=== PATIENT | male | born 1950 | race Caucasian/White ===

== ENCOUNTER 2019-07-12 22:14 | Emergency (ER) | payer MEDICARE, BC ==
[2019-07-12] MEDS ORDERED: Cephalexin 250 MG Cap PO ONE (22:53)
[2019-07-12] MEDS ORDERED: Sulfamethoxazole/Trimethoprim 800-160 MG Tab PO ONE (22:54)
--- NOTE | 2019-07-12 23:03 | EDM.PDOC ---
ED HPI GENERAL MEDICAL PROBLEM - General Chief Complaint: Skin Complaint Stated Complaint: BUG BITE Time Seen by Provider: 07/12/19 22:50 Source of Information: Reports: Patient, RN History Limitations: Reports: Other (no old records) - History of Present Illness INITIAL COMMENTS - FREE TEXT/NARRATIVE: 69 yo male from [facility] arrived today and noted L distal anterior thigh redness and increased warmth. He has not had a fever. He thought he had a bug bite in this area for the past few days and now has the surrounding redness. Has no allergies to antibiotics. Onset: Gradual Onset Date: 07/08/19 Duration: Day(s):, Getting Worse Location: Reports: Lower Extremity, Left Quality: Reports: Dull Severity: Mild Improves with: Reports: None Worsens with: Reports: Other (time) Context: Reports: Other (See HPI) Associated Symptoms: Reports: No Other Symptoms. 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: Other (see below) (none) - Related Data Allergies Allergy/AdvReac Type Severity Reaction Status Date / Time No Known Allergies Allergy Verified 07/12/19 22:54 Home Meds: Home Meds Cephalexin [Keflex] 750 mg PO Q8H #14 capsule 07/12/19 [Rx] Sulfamethoxazole/Trimethoprim [Bactrim Ds Tablet] 1 each PO BID #14 tablet 07/12 [Rx] atorvaSTATin Calcium [Lipitor] 40 mg PO BEDTIME 07/12/19 [History] Past Medical History Cardiovascular History: Reports: High Cholesterol Social & Family History - Tobacco Use Smoking Status *Q: Never Smoker - Caffeine Use Caffeine Use: Reports: None - Alcohol Use Days Per Week of Alcohol Use: 3 Number of Drinks Per Day: 2 Total Drinks Per Week: 6 - Recreational Drug Use Recreational Drug Use: No ED ROS GENERAL - Review of Systems Review Of Systems: See Below Constitutional: Reports: No Symptoms Musculoskeletal: Reports: Other (L knee a little tight with flexion) Skin: Reports: Erythema (upper L anterior knee and distal L thigh anteriorly) ED EXAM, SKIN/RASH Exam: See Below Exam Limited By: No Limitations General Appearance: Alert, WD/WN, No Apparent Distress Extremities: Limited Range of Motion (full flexion difficult due to swelling of red area. ), Increased Warmth (upper L knee and distal anterior thigh), Redness (L anterior knee. ). No: No Pedal Edema Neurological: Alert, Oriented, CN II-XII Intact, No Motor/Sensory Deficits Psychiatric: Normal Affect, Normal Mood Skin: Warm, Dry, Intact, No Rash, Erythema (Redness to anterior upper knee and anterior/distal thigh), Other (2 small pustules overlie the red area.) Location, Skin: Lower Extremity, Left Characteristics: Macular (cellulitis), Other (pustules x 2) Associated features: Warmth Course - Vital Signs Text/Narrative:: culture of the larger pustule obtained. Last Recorded V/S: Last Vital Signs Temp 35.4 C 07/12/19 22:55 Pulse 66 07/12/19 22:55 Resp 18 07/12/19 22:55 BP 139/85 07/12/19 22:55 Pulse Ox 97 07/12/19 22:55 - Orders/Labs/Meds Orders: Active Orders 24 hr Category Date Time Status CULTURE WOUND + SMEAR [RM] Stat Lab 07/12/19 22:50 Ordered Meds: Medications Discontinued Medications Generic Name Dose Route Start Last Admin Trade Name Dalia PRN Reason Stop Dose Admin Cephalexin 1,000 mg 07/12/19 22:53 Keflex PO 07/12/19 22:54 ONETIME ONE Trimethoprim/Sulfamethoxazole 1 tab 07/12/19 22:54 Septra Ds PO 07/12/19 22:55 ONETIME ONE Departure - Departure Time of Disposition: 23:15 Disposition: Home, Self-Care 01 Condition: Fair Clinical Impression: Cellulitis Qualifiers: Site of cellulitis: extremity Site of cellulitis of extremity: lower extremity Laterality: left Qualified Code(s): L03.116 - Cellulitis of left lower limb - Discharge Information *PRESCRIPTION DRUG MONITORING PROGRAM REVIEWED*: No *COPY OF PRESCRIPTION DRUG MONITORING REPORT IN PATIENT JESUS MANUEL: No Prescriptions: Cephalexin [Keflex] 750 mg PO Q8H #14 capsule Sulfamethoxazole/Trimethoprim [Bactrim Ds Tablet] 1 each PO BID #14 tablet Referrals: PCP,None [Primary Care Provider] - Additional Instructions: Take antibiotics as directed. The cephalexin will be due next when pharmacies open in the morning tomorrow. Warm compresses to area. Keep wound clean. Recheck Sunday in the clinic, return here if worse in the interim or head home to see your doctor. Culture will be available in about 3 days. - My Orders Last 24 Hours: My Active Orders 07/12/19 22:50 CULTURE WOUND + SMEAR [RM] Stat - Assessment/Plan Last 24 Hours: My Active Orders 07/12/19 22:50 CULTURE WOUND + SMEAR [RM] Stat
== END 2019-07-12 23:20 | disposition home or self-care (01) ==
LOC: JP.ED 22:14
DX: L03.116 Cellulitis of left lower limb (principal)
CPT/HCPCS: 87070; 87077; 87186; 87205; 99281; A9270; 99283

== ENCOUNTER 2019-07-13 19:25 | Emergency (ER) | payer MEDICARE, BC ==
--- NOTE | 2019-07-13 20:32 | EDM.PDOC ---
ED HPI GENERAL MEDICAL PROBLEM - General Chief Complaint: Lower Extremity Injury/Pain Stated Complaint: CONCERNS WITH INFEC IN KNEE Time Seen by Provider: 07/13/19 20:12 Source of Information: Reports: Patient, Family, Old Records, RN Notes Reviewed History Limitations: Reports: No Limitations - History of Present Illness INITIAL COMMENTS - FREE TEXT/NARRATIVE: 69-year-old gentleman presents emergency department today for recheck of his cellulitis, He was evaluated in the emergency department yesterday started on antibiotics of Keflex and Bactrim he states the wound has improved the redness is lightened up however it has progressed past the line about an inch, the warmth has improved the pain is also improved. - Related Data Allergies Allergy/AdvReac Type Severity Reaction Status Date / Time No Known Allergies Allergy Verified 07/13/19 20:26 Home Meds: Home Meds Cephalexin [Keflex] 750 mg PO Q8H #14 capsule 07/12/19 [Rx] Sulfamethoxazole/Trimethoprim [Bactrim Ds Tablet] 1 each PO BID #14 tablet 07/12 [Rx] atorvaSTATin Calcium [Lipitor] 40 mg PO BEDTIME 07/12/19 [History] Past Medical History Cardiovascular History: Reports: High Cholesterol Social & Family History - Tobacco Use Smoking Status *Q: Never Smoker - Caffeine Use Caffeine Use: Reports: None - Recreational Drug Use Recreational Drug Use: No Review of Systems - Review of Systems Review Of Systems: See Below Constitutional: Reports: No Symptoms Skin: Reports: Erythema ED EXAM, GENERAL - Physical Exam Exam: See Below Free Text/Narrative:: Examination of the left knee reveals mild erythema over the knee is slight redness passing the line that was drawn yesterday it is not warm to the touch not tender to the touch full range of motion of the knee Exam Limited By: No Limitations General Appearance: Alert, WD/WN, No Apparent Distress Respiratory/Chest: No Respiratory Distress Course - Vital Signs Last Recorded V/S: Last Vital Signs Temp 97.7 F 07/13/19 20:15 Pulse 76 07/13/19 20:15 Resp 18 07/13/19 20:15 BP 148/76 H 07/13/19 20:15 Pulse Ox 95 07/13/19 20:15 Departure - Departure Time of Disposition: 20:30 Disposition: Home, Self-Care 01 Condition: Fair Clinical Impression: Cellulitis Qualifiers: Site of cellulitis: extremity Site of cellulitis of extremity: lower extremity Laterality: left Qualified Code(s): L03.116 - Cellulitis of left lower limb - Discharge Information Instructions: Cellulitis, Adult Referrals: PCP,None [Primary Care Provider] - Additional Instructions: Continue course of antibiotics started, follow-up with your primary care in the next 3-4 days if no improvement call or return to the emergency department worsening of symptoms - Assessment/Plan Plan: Assessment Acuity = acute Site and laterality = cellulitis left knee Etiology = probable bacterial cause Manifestations = none Location of injury = Home Lab values = none Plan Mainly reassurance continue the antibiotics initiated wound culture is pending This note was dictated using [employer] voice recognition software please call with any questions on syntax or grammar.
== END 2019-07-13 20:48 | disposition home or self-care (01) ==
LOC: JP.ED 19:25
DX: L03.116 Cellulitis of left lower limb (principal); E78.00 Pure hypercholesterolemia, unspecified; Z79.899 Other long term (current) drug therapy
CPT/HCPCS: 99282; 99283

== ENCOUNTER 2022-07-15 20:49 | Emergency (ER) | payer MEDICARE, BC ==
[2022-07-15] MEDS ORDERED: Diphtheria,Pertussis(Acell),Tetanus Vaccine 0.5 ML Syringe IM ONE (22:49)
== END 2022-07-15 23:00 | disposition home or self-care (01) ==
LOC: JP.ED 20:49
DX: L03.115 Cellulitis of right lower limb (principal); E78.00 Pure hypercholesterolemia, unspecified; Z79.899 Other long term (current) drug therapy; Z23 Encounter for immunization
CPT/HCPCS: 90471; 90715; 99283-25